=== PATIENT | male | born 1955 | race Caucasian/White ===

== ENCOUNTER 2021-06-18 11:09 | Inpatient (IN) | payer BC ==
[2021-06-18] MEDS ORDERED: Nitroglycerin 2% Ointment 1 INCH/1 GM Packet ONE (11:41)
[2021-06-18 11:48] LABS: #Lymphocytes 1.9 thou/uL (1.20-3.40); #Monocytes 0.6 thou/uL (0.11-0.59); #Neutrophils 6.2 thou/uL (1.40-6.50); %Basophils 0.3 % (0.0-1.0); %Eosinophils 0.5 % (0.0-10.0); %Lymphocytes 21.7 % (21.0-51.0); %Monocytes 6.4 % (0.0-10.0); %Neutrophils 71.1 % (42.0-75.0); Hemoglobin 15.1 g/dL (14.0-18.0); Mean Corpuscular HGB CONC 32.3 g/dL (32.0-36.0); Mean Corpuscular Hemoglobin 29.3 pg (27.0-31.0); Mean Corpuscular Volume 90.7 fL (78.0-98.0); Platelet Count 233 thou/uL (130-400); RBC Distribution Width 11.8 % (11.5-14.5); Red Blood Cell (RBC) Count 5.17 mill/uL (4.70-6.10); White Blood Cell (WBC) Count 8.8 thou/uL (4.8-10.8)
[2021-06-18 12:09] LABS: ALT (SGPT) 26 U/L (8-55); AST (SGOT) 17 U/L (5-34); Albumin 4.2 g/dL (3.4-4.8); Alkaline Phosphatase 86 U/L (40-110); Anion Gap 13 mmol/L (10-20); BUN (Urea Nitrogen) 9 mg/dL (8.4-25.7); Bilirubin, Total 0.4 mg/dL (0.2-1.2); Calc. Creatinine Clearance 0 mL/min (70-130); Calcium 9.4 mg/dL (7.8-10.44); Carbon Dioxide 21 mmol/L (23-31); Chloride 106 mmol/L (98-107); Globulin 2.9 g/dL (2.4-3.5); Glucose 105 mg/dL (80-115); Lipase 14 U/L (8-78); Magnesium 1.9 mg/dL (1.6-2.6); Potassium 4.1 mmol/L (3.5-5.1); Protein, Total 7.1 g/dL (5.8-8.1); Sodium 136 mmol/L (136-145)
[2021-06-18 12:30] LABS: CKMB 1.4 ng/mL (0-6.6)
[2021-06-18] MEDS ORDERED: Enoxaparin Sodium 80 MG/0.8 ML SYRINGE ONE (13:11)
[2021-06-18] MEDS ORDERED: Aspirin Chewable 81 MG TAB ONE (13:11)
[2021-06-18] MEDS ORDERED: Acetaminophen 650 MG Suppository PR PRN (13:43)
[2021-06-18] MEDS ORDERED: Dextrose 50% Abboject 50 ML SYRINGE SLOW IVP PRN (13:46)
[2021-06-18] MEDS ORDERED: Dextrose 5% in Water 1,000 ML IV PRN (13:46)
[2021-06-18] MEDS ORDERED: Insulin Regular 300 UNITS/3 ML VIAL SC PRN (13:46)
[2021-06-18] MEDS ORDERED: Lidocaine 2% Viscous Solution 10 ML, Aluminum & Magnesium Hydroxide 30 ML SSW SCH (14:15)
[2021-06-18 15:36] VITALS: BMI 29.9
[2021-06-18 16:30] LABS: Troponin I 0.052 ng/mL (< 0.028)
[2021-06-18 18:29] LABS: Troponin I 0.052 ng/mL (< 0.028)
[2021-06-18 19:40] LABS: SARS-CoV-2 PCR by NAA Not Detected (NotDetected)
[2021-06-18] MEDS: Atorvastatin Calcium 40 MG TAB PO SCH (20:11)
[2021-06-18] MEDS: Acetaminophen 325 MG TAB PO PRN (20:14)
[2021-06-18] MEDS: Nitroglycerin 2% Ointment 1 INCH/1 GM Packet TOP SCH (20:25)
[2021-06-19] MEDS: Nitroglycerin 2% Ointment 1 INCH/1 GM Packet TOP SCH ×3 (03:04→21:00)
[2021-06-19 05:12] LABS: #Basophils 0.1 thou/uL (0.0-0.2); #Eosinphils 0.1 thou/uL (0.0-0.7); #Monocytes 0.7 thou/uL (0.11-0.59); #Neutrophils 6.6 thou/uL (1.40-6.50); %Basophils 0.7 % (0.0-1.0); %Lymphocytes 20.9 % (21.0-51.0); %Monocytes 7.4 % (0.0-10.0); Hemoglobin 14.2 g/dL (14.0-18.0); Mean Corpuscular Hemoglobin 29.8 pg (27.0-31.0); Mean Corpuscular Volume 90.3 fL (78.0-98.0); Mean Platelet Volume 7.9 fL (7.4-10.4); Platelet Count 191 thou/uL (130-400); RBC Distribution Width 11.6 % (11.5-14.5); Red Blood Cell (RBC) Count 4.75 mill/uL (4.70-6.10); White Blood Cell (WBC) Count 9.4 thou/uL (4.8-10.8)
[2021-06-19 05:30] LABS: Anion Gap 12 mmol/L (10-20); BUN (Urea Nitrogen) 11 mg/dL (8.4-25.7); Calc. Creatinine Clearance 96 mL/min (70-130); Calcium 9.1 mg/dL (7.8-10.44); Carbon Dioxide 25 mmol/L (23-31); Cardiac Risk 3.6 (Less than 4.5); Chloride 105 mmol/L (98-107); Cholesterol 121 mg/dl (< 200 Desired); Glucose 102 mg/dL (80-115); HDL Cholesterol 34 mg/dL (>60 Neg Risk); LDL Cholesterol, Calculated 64 mg/dL; Potassium 3.9 mmol/L (3.5-5.1); Sodium 138 mmol/L (136-145); Triglycerides 115 mg/dL (Less than 150)
[2021-06-19] MEDS: Amlodipine 5 MG TAB PO SCH (08:27)
[2021-06-19] MEDS ORDERED: Amlodipine 10 MG TAB PO SCH (09:00)
[2021-06-19] MEDS: Aspirin Chewable 81 MG TAB PO SCH (13:21)
[2021-06-19] MEDS ORDERED: Regadenoson 0.4 MG/5 ML SYRINGE ONE (14:57)
[2021-06-19] MEDS: Atorvastatin Calcium 40 MG TAB PO SCH (20:57)
[2021-06-20] MEDS: Nitroglycerin 2% Ointment 1 INCH/1 GM Packet TOP SCH ×3 (04:56→20:11)
[2021-06-20] MEDS: Acetaminophen 325 MG TAB PO PRN ×2 (04:57→20:10)
[2021-06-20 05:11] LABS: #Eosinphils 0.1 thou/uL (0.0-0.7); #Lymphocytes 2.1 thou/uL (1.20-3.40); #Monocytes 0.8 thou/uL (0.11-0.59); #Neutrophils 7.8 thou/uL (1.40-6.50); %Basophils 0.4 % (0.0-1.0); %Eosinophils 0.8 % (0.0-10.0); %Lymphocytes 19.1 % (21.0-51.0); %Monocytes 7.4 % (0.0-10.0); %Neutrophils 72.4 % (42.0-75.0); Hemoglobin 13.3 g/dL (14.0-18.0); Mean Corpuscular HGB CONC 31.3 g/dL (32.0-36.0); Mean Corpuscular Hemoglobin 28.6 pg (27.0-31.0); Mean Corpuscular Volume 91.2 fL (78.0-98.0); Mean Platelet Volume 7.6 fL (7.4-10.4); Platelet Count 224 thou/uL (130-400); RBC Distribution Width 11.6 % (11.5-14.5); Red Blood Cell (RBC) Count 4.66 mill/uL (4.70-6.10); White Blood Cell (WBC) Count 10.8 thou/uL (4.8-10.8)
[2021-06-20 05:36] LABS: Anion Gap 12 mmol/L (10-20); BUN (Urea Nitrogen) 12 mg/dL (8.4-25.7); Calc. Creatinine Clearance 99 mL/min (70-130); Calcium 8.8 mg/dL (7.8-10.44); Carbon Dioxide 25 mmol/L (23-31); Chloride 105 mmol/L (98-107); Glucose 109 mg/dL (80-115); Potassium 3.9 mmol/L (3.5-5.1); Sodium 138 mmol/L (136-145)
[2021-06-20] MEDS: Amlodipine 5 MG TAB PO SCH (07:59)
[2021-06-20] MEDS: Aspirin Chewable 81 MG TAB PO SCH (07:59)
[2021-06-20] MEDS: Lisinopril 5 MG TAB PO SCH (07:59)
[2021-06-20] MEDS ORDERED: Communication Order-Pharmacy FS SCH (11:15)
[2021-06-20] MEDS: Atorvastatin Calcium 40 MG TAB PO SCH (20:11)
[2021-06-21] MEDS: Nitroglycerin 2% Ointment 1 INCH/1 GM Packet TOP SCH ×3 (05:05→20:26)
[2021-06-21 05:33] LABS: #Eosinphils 0.2 thou/uL (0.0-0.7); #Lymphocytes 2.4 thou/uL (1.20-3.40); #Monocytes 0.7 thou/uL (0.11-0.59); %Basophils 0.3 % (0.0-1.0); %Eosinophils 2.2 % (0.0-10.0); %Lymphocytes 32.8 % (21.0-51.0); %Monocytes 9.6 % (0.0-10.0); %Neutrophils 55.1 % (42.0-75.0); Hemoglobin 12.9 g/dL (14.0-18.0); Mean Corpuscular HGB CONC 32.3 g/dL (32.0-36.0); Mean Corpuscular Hemoglobin 29.4 pg (27.0-31.0); Mean Corpuscular Volume 91.1 fL (78.0-98.0); Mean Platelet Volume 8.3 fL (7.4-10.4); Platelet Count 198 thou/uL (130-400); RBC Distribution Width 11.6 % (11.5-14.5); Red Blood Cell (RBC) Count 4.39 mill/uL (4.70-6.10); White Blood Cell (WBC) Count 7.3 thou/uL (4.8-10.8)
[2021-06-21 05:43] LABS: Anion Gap 10 mmol/L (10-20); BUN (Urea Nitrogen) 12 mg/dL (8.4-25.7); Calc. Creatinine Clearance 90 mL/min (70-130); Calcium 8.6 mg/dL (7.8-10.44); Carbon Dioxide 26 mmol/L (23-31); Chloride 107 mmol/L (98-107); Glucose 107 mg/dL (80-115); Potassium 3.8 mmol/L (3.5-5.1); Sodium 139 mmol/L (136-145)
[2021-06-21] MEDS: Lisinopril 5 MG TAB PO SCH (05:59)
[2021-06-21] MEDS: Aspirin Chewable 81 MG TAB PO SCH (05:59)
[2021-06-21] MEDS: Amlodipine 5 MG TAB PO SCH (05:59)
[2021-06-21] MEDS ORDERED: Nitroglycerin 100MG/250ML BOT 250 ML ONE (06:26)
[2021-06-21] MEDS ORDERED: Heparin 10,000 UNITS/ 10 ML VIAL ONE (06:26)
[2021-06-21] MEDS ORDERED: Lidocaine 1% (PF) 30 ML VIAL ONE (06:26)
[2021-06-21] MEDS ORDERED: Verapamil 5 MG/2 ML VIAL ONE (07:11)
[2021-06-21] MEDS ORDERED: Midazolam HCl 2 mg/2 ml Vial ONE (07:12)
[2021-06-21] MEDS ORDERED: Adenosine 6 MG/2 ML VIAL ONE (07:42)
[2021-06-21] MEDS ORDERED: Nitroglycerin 0.4 MG TAB (25 Tab Bottle) SL PRN ×2 (08:19→08:23)
[2021-06-21] MEDS ORDERED: Acetaminophen/Codeine 30-300mg Tablet PO PRN ×3 (08:19→08:23)
[2021-06-21] MEDS ORDERED: Sodium Chloride 0.9% 200 ML IV PRN ×2 (08:19→08:23)
[2021-06-21] MEDS ORDERED: Iopamidol 370 76% 100 ML VIAL ONE (14:54)
[2021-06-21] MEDS ORDERED: Diazepam 5 MG TAB PO PRN (18:13)
[2021-06-21] MEDS ORDERED: Communication Order-Pharmacy FS SCH (18:13)
[2021-06-21] MEDS: Atorvastatin Calcium 40 MG TAB PO SCH (20:26)
[2021-06-21] MEDS ORDERED: Senokot 8.6 MG TAB PO SCH (21:00)
[2021-06-22 05:26] LABS: #Eosinphils 0.1 thou/uL (0.0-0.7); #Lymphocytes 1.7 thou/uL (1.20-3.40); #Monocytes 0.6 thou/uL (0.11-0.59); #Neutrophils 5.6 thou/uL (1.40-6.50); %Basophils 0.3 % (0.0-1.0); %Eosinophils 1.2 % (0.0-10.0); %Monocytes 7.7 % (0.0-10.0); %Neutrophils 69.7 % (42.0-75.0); Hemoglobin 13.5 g/dL (14.0-18.0); Mean Corpuscular HGB CONC 32.8 g/dL (32.0-36.0); Mean Corpuscular Hemoglobin 29.7 pg (27.0-31.0); Mean Corpuscular Volume 90.4 fL (78.0-98.0); Mean Platelet Volume 8.1 fL (7.4-10.4); Platelet Count 209 thou/uL (130-400); RBC Distribution Width 11.4 % (11.5-14.5); Red Blood Cell (RBC) Count 4.53 mill/uL (4.70-6.10)
[2021-06-22] MEDS: Nitroglycerin 2% Ointment 1 INCH/1 GM Packet TOP SCH (05:30)
[2021-06-22 05:44] LABS: Anion Gap 13 mmol/L (10-20); BUN (Urea Nitrogen) 10 mg/dL (8.4-25.7); Calc. Creatinine Clearance 104 mL/min (70-130); Calcium 8.8 mg/dL (7.8-10.44); Carbon Dioxide 23 mmol/L (23-31); Chloride 107 mmol/L (98-107); Glucose 106 mg/dL (80-115); Potassium 3.7 mmol/L (3.5-5.1); Sodium 139 mmol/L (136-145)
[2021-06-22] MEDS: Lisinopril 5 MG TAB PO SCH (05:54)
[2021-06-22] MEDS ORDERED: Albumin 5% 500 ML ONE (10:41)
[2021-06-22] MEDS ORDERED: EPINEPHrine 1 MG/ML AMP ONE (10:41)
[2021-06-22] MEDS ORDERED: Bupivacaine 0.25% 10 ML VIAL ONE (10:41)
[2021-06-22] MEDS ORDERED: ceFAZolin 2 GM/Dextrose 50 ML 2 GM in Premix Bag 1 BAG IVPB SCH (11:00)
[2021-06-22] MEDS ORDERED: Dexamethasone 4 mg/ml Vial ONE (11:02)
[2021-06-22] MEDS ORDERED: Heparin 10,000 UNITS/1 ML VIAL 30,000 UNITS in Sodium Chloride 0.9% 1,000 ML FS SCH (11:15)
[2021-06-22] MEDS ORDERED: CEFAZOLIN 1 GM VIAL ONE (11:26)
[2021-06-22] MEDS ORDERED: ceFAZolin 2 GM/DEX 5% 100 ML BAG ONE (11:26)
[2021-06-22] MEDS ORDERED: Calcium Chloride 1 GM/10 ML Abboject SYRINGE ONE (11:37)
[2021-06-22] MEDS ORDERED: ePHEDrine 50 MG/ML VIAL ONE (11:37)
[2021-06-22] MEDS ORDERED: Sodium Bicarb 50 MEQ/50 ML Abboject 8.4% SYRINGE ONE (11:37)
[2021-06-22] MEDS ORDERED: Heparin 30,000 units/30 ml VIAL ONE (11:37)
[2021-06-22] MEDS ORDERED: Rocuronium Bromide 10 MG/ML (10ML VIAL) ONE (11:37)
[2021-06-22] MEDS ORDERED: Protamine Sulfate 250 MG/25 ML VIAL ONE (11:37)
[2021-06-22] MEDS ORDERED: PROPOFOL 200 MG/20 ML VIAL ONE (11:37)
[2021-06-22] MEDS ORDERED: Cardioplegic Soln 1,000 ML BAG ONE (11:37)
[2021-06-22] MEDS ORDERED: Heparin 5,000 UNITS/ML VIAL ONE (11:37)
[2021-06-22] MEDS ORDERED: Vecuronium 10 MG VIAL ONE (11:37)
[2021-06-22] MEDS ORDERED: Potassium Chloride 60 MEQ/30 ML VIAL ONE (11:37)
[2021-06-22] MEDS ORDERED: Thrombin 5000 UNITS/5 ML VIAL ONE (11:37)
[2021-06-22] MEDS ORDERED: Magnesium Sulfate 1 GM/2 ML VIAL ONE (11:37)
[2021-06-22] MEDS ORDERED: Mannitol 12.5 GM/50 ML ONE (11:37)
[2021-06-22] MEDS ORDERED: Lidocaine 2% PF 100 mg/5 ml Syringe ONE (11:37)
[2021-06-22] MEDS ORDERED: Aminocaproic Acid 5 GM/20 ML VIAL ONE (11:37)
[2021-06-22] MEDS ORDERED: Papaverine 60 MG/2 ML VIAL ONE (11:37)
[2021-06-22] MEDS ORDERED: Midazolam HCl 5 mg/5 ml Vial ONE (11:43)
[2021-06-22] MEDS ORDERED: Fentanyl 100 MCG/2 ML VIAL ONE ×2 (11:43)
[2021-06-22] MEDS ORDERED: metroNIDAZOLE 500 MG/100 ML BAG ONE (11:44)
[2021-06-22] MEDS ORDERED: Acetaminophen 325 MG TAB PO PRN (14:46)
[2021-06-22] MEDS ORDERED: D5 1/2 NS w/20 mEq KCL 1,000 ML IV SCH (14:46)
[2021-06-22] MEDS ORDERED: Magnesium 2 GM/50 ML(in water) 2 GM in Premix Bag 1 BAG IVPB SCH (14:46)
[2021-06-22] MEDS ORDERED: Mag-Al 1200 mg/1200 mg/30 ML UDCUP PO PRN (14:46)
[2021-06-22] MEDS ORDERED: Nitroglycerin 50 MG/250 ML BOT 250 ML IVPB PRN (14:46)
[2021-06-22] MEDS ORDERED: hydrALAZINE 20 MG/ML VIAL SLOW IVP PRN (14:46)
[2021-06-22] MEDS ORDERED: Fentanyl 100 MCG/2 ML VIAL SLOW IVP PRN ×2 (14:46)
[2021-06-22] MEDS ORDERED: Promethazine HCl 25 MG/ML VIAL IM PRN (14:46)
[2021-06-22] MEDS ORDERED: Guaifenesin DM 100-10/5 ML UDCUP PO PRN (14:46)
[2021-06-22] MEDS ORDERED: Phenylephrine 40 MG in Sodium Chloride 0.9% 250 ML 246 ML IVPB PRN (14:46)
[2021-06-22] MEDS ORDERED: Bisacodyl 5 MG TAB PO PRN (14:46)
[2021-06-22] MEDS ORDERED: Hetastarch 6% 500 ML 500 ML IVPB PRN (14:46)
[2021-06-22] MEDS ORDERED: Morphine 4 MG/ML VIAL SLOW IVP PRN (14:46)
[2021-06-22] MEDS ORDERED: Bisacodyl 10 MG SUPP PR PRN (14:46)
[2021-06-22] MEDS ORDERED: Potassium Chloride 20 MEQ/100 ML PREMIX BAG IVPB PRN (14:46)
[2021-06-22 15:06] LABS: Actual Bicarbonate (HCO3a) 21.8 mEq/L (22-28); Base Excess (BEa) -3.2 mEq/L (-2.0 to +3.0); CO2 Tension 38.8 mmHg (35.0-45.0); Calcium, Ionized (arterial) 1.14 mmol/L (1.12-1.30); Carboxyhemoglobin (COHb) 0.1 gm% (0.0-3.0); Hemoglobin (Hb) 12.8 g/dL (14.0-18.0); O2 Tension (PaO2), arterial 217.7 mmHg (> 80.0); Potassium - ABG Lab 4.14 mmol/L (3.70-5.30); pH, Arterial 7.37 (7.35-7.45)
[2021-06-22 15:08] LABS: Puncture Site Arterial Line
[2021-06-22] MEDS ORDERED: Dextrose 5% in Water 1,000 ML IV PRN (15:15)
[2021-06-22] MEDS ORDERED: Dextrose 50% Abboject 50 ML SYRINGE SLOW IVP PRN (15:15)
[2021-06-22 15:27] LABS: #Basophils 0.1 thou/uL (0.0-0.2); #Eosinphils 0.1 thou/uL (0.0-0.7); #Lymphocytes 1.3 thou/uL (1.20-3.40); #Monocytes 0.5 thou/uL (0.11-0.59); #Neutrophils 11.8 thou/uL (1.40-6.50); %Basophils 0.5 % (0.0-1.0); %Eosinophils 0.5 % (0.0-10.0); %Lymphocytes 9.2 % (21.0-51.0); %Monocytes 3.7 % (0.0-10.0); %Neutrophils 86.1 % (42.0-75.0); Hemoglobin 12.3 g/dL (14.0-18.0); Mean Corpuscular HGB CONC 32.8 g/dL (32.0-36.0); Mean Corpuscular Volume 91.3 fL (78.0-98.0); Platelet Count 138 thou/uL (130-400); RBC Distribution Width 11.5 % (11.5-14.5); Red Blood Cell (RBC) Count 4.11 mill/uL (4.70-6.10); White Blood Cell (WBC) Count 13.7 thou/uL (4.8-10.8)
[2021-06-22 15:35] LABS: Anion Gap 14 mmol/L (10-20); BUN (Urea Nitrogen) 9 mg/dL (8.4-25.7); Calc. Creatinine Clearance 114 mL/min (70-130); Calcium 8.1 mg/dL (7.8-10.44); Carbon Dioxide 20 mmol/L (23-31); Chloride 110 mmol/L (98-107); Glucose 131 mg/dL (80-115); Potassium 4.2 mmol/L (3.5-5.1); Sodium 140 mmol/L (136-145)
[2021-06-22 15:40] LABS: INR-International Normal Ratio 1.2; PTT 30.8 sec (22.9-36.1); Prothrombin Time 15.5 sec (12.0-14.7)
[2021-06-22] MEDS: Insulin Regular 300 UNITS/3 ML VIAL SC PRN ×2 (15:47→21:09)
[2021-06-22] MEDS: Ketorolac Tromethamine 30 MG/ML VIAL IVP SCH (17:36)
[2021-06-22 20:22] LABS: Hemoglobin 12.9 g/dL (14.0-18.0)
[2021-06-22 20:43] LABS: Potassium 4.3 mmol/L (3.5-5.1)
[2021-06-22] MEDS: Atorvastatin Calcium 40 MG TAB PO SCH (20:55)
[2021-06-22] MEDS: Famotidine/PF 20 mg/2ml Vial SLOW IVP SCH (20:57)
[2021-06-22] MEDS: CEFAZOLIN 2 GM, IV Admixture Fee-Chemo 1 UNITS in Sodium Chloride 0.9% 100 ML IVPB SCH (21:08)
[2021-06-22] MEDS: traMADol HCl 50 MG TAB PO PRN (21:20)
[2021-06-22] MEDS: Ondansetron PF 4 MG/2 ML Vial IVP PRN (22:09)
[2021-06-23] MEDS: Ketorolac Tromethamine 30 MG/ML VIAL IVP SCH ×5 (00:24→23:07)
[2021-06-23] MEDS: Insulin Regular 300 UNITS/3 ML VIAL SC PRN ×3 (00:32→23:06)
[2021-06-23] MEDS: CEFAZOLIN 2 GM, IV Admixture Fee-Chemo 1 UNITS in Sodium Chloride 0.9% 100 ML IVPB SCH (03:57)
[2021-06-23 04:37] LABS: #Lymphocytes 0.6 thou/uL (1.20-3.40); #Monocytes 0.8 thou/uL (0.11-0.59); #Neutrophils 12.7 thou/uL (1.40-6.50); %Lymphocytes 4.5 % (21.0-51.0); %Monocytes 5.9 % (0.0-10.0); %Neutrophils 89.5 % (42.0-75.0); Hemoglobin 11.3 g/dL (14.0-18.0); Mean Corpuscular HGB CONC 31.7 g/dL (32.0-36.0); Mean Corpuscular Hemoglobin 28.9 pg (27.0-31.0); Mean Corpuscular Volume 90.9 fL (78.0-98.0); Mean Platelet Volume 8.2 fL (7.4-10.4); Platelet Count 186 thou/uL (130-400); RBC Distribution Width 11.5 % (11.5-14.5); Red Blood Cell (RBC) Count 3.91 mill/uL (4.70-6.10); White Blood Cell (WBC) Count 14.1 thou/uL (4.8-10.8)
[2021-06-23 04:56] LABS: Anion Gap 10 mmol/L (10-20); BUN (Urea Nitrogen) 10 mg/dL (8.4-25.7); Calc. Creatinine Clearance 121 mL/min (70-130); Calcium 7.9 mg/dL (7.8-10.44); Carbon Dioxide 22 mmol/L (23-31); Chloride 110 mmol/L (98-107); Glucose 153 mg/dL (80-115); Potassium 4.6 mmol/L (3.5-5.1); Sodium 137 mmol/L (136-145)
[2021-06-23] MEDS: Famotidine/PF 20 mg/2ml Vial SLOW IVP SCH (07:29)
[2021-06-23] MEDS: Aspirin 325 MG TAB PO SCH (07:32)
[2021-06-23] MEDS ORDERED: Magnesium 2 GM/50 ML(in water) 2 GM in Premix Bag 1 BAG IVPB SCH (09:00)
[2021-06-23] MEDS: traMADol HCl 50 MG TAB PO PRN ×4 (09:13→23:06)
[2021-06-23] MEDS ORDERED: Mineral Oil ENEMA PR PRN (09:58)
[2021-06-23] MEDS ORDERED: diphenhydrAMINE 25 MG CAP PO PRN (09:58)
[2021-06-23] MEDS ORDERED: Fentanyl 100 MCG/2 ML VIAL SLOW IVP PRN (09:58)
[2021-06-23] MEDS ORDERED: Guaifenesin DM 100-10/5 ML UDCUP PO PRN (09:58)
[2021-06-23] MEDS ORDERED: Mag-Al 1200 mg/1200 mg/30 ML UDCUP PO PRN (09:58)
[2021-06-23] MEDS ORDERED: Zolpidem Tartrate 5 MG TAB PO PRN (09:58)
[2021-06-23] MEDS ORDERED: Bisacodyl 10 MG SUPP PR PRN ×2 (09:58→16:30)
[2021-06-23] MEDS ORDERED: Dextrose 50% Abboject 50 ML SYRINGE SLOW IVP PRN (10:30)
[2021-06-23] MEDS ORDERED: Dextrose 5% in Water 1,000 ML IV PRN (10:30)
[2021-06-23] MEDS: Ondansetron PF 4 MG/2 ML Vial IVP PRN (11:44)
[2021-06-23] MEDS: Milk Of Magnesia 30 ML UDCUP PO PRN (11:44)
[2021-06-23] MEDS: Furosemide 20 MG TAB PO SCH (15:30)
[2021-06-23] MEDS: Potassium Chloride 10 MEQ TAB PO SCH (17:07)
[2021-06-23] MEDS: Fentanyl 100 MCG/2 ML VIAL SLOW IVP PRN (21:11)
[2021-06-23] MEDS: Atorvastatin Calcium 40 MG TAB PO SCH (21:12)
[2021-06-24] MEDS: Fentanyl 100 MCG/2 ML VIAL SLOW IVP PRN (05:28)
[2021-06-24] MEDS: Ketorolac Tromethamine 30 MG/ML VIAL IVP SCH ×4 (05:29→23:32)
[2021-06-24 09:59] LABS: Actual Bicarbonate (HCO3a) 18.7 mEq/L (22-28); Analyzer IN Cardio OR; Base Excess (BEa) -5.7 mEq/L (-2.0 to +3.0); CO2 Tension 33.1 mmHg (35.0-45.0); Calcium, Ionized (arterial) 1.09 mmol/L (1.12-1.30); Carboxyhemoglobin (COHb) 0.1 gm% (0.0-3.0); O2 Tension (PaO2), arterial 417.4 mmHg (> 80.0); Potassium - ABG Lab 3.66 mmol/L (3.70-5.30); pH, Arterial 7.37 (7.35-7.45)
[2021-06-24 10:00] LABS: Actual Bicarbonate (HCO3a) 21.1 mEq/L (22-28); Analyzer IN Cardio OR; Base Excess (BEa) -4.4 mEq/L (-2.0 to +3.0); CO2 Tension 40.7 mmHg (35.0-45.0); Calcium, Ionized (arterial) 1.11 mmol/L (1.12-1.30); Carboxyhemoglobin (COHb) 0.4 gm% (0.0-3.0); Hemoglobin (Hb) 12.4 g/dL (14.0-18.0); Potassium - ABG Lab 4.06 mmol/L (3.70-5.30); pH, Arterial 7.33 (7.35-7.45)
[2021-06-24 10:01] LABS: Actual Bicarbonate (HCO3a) 25.3 mEq/L (22-28); Analyzer IN Cardio OR; Base Excess (BEa) 0.2 mEq/L (-2.0 to +3.0); CO2 Tension 43.1 mmHg (35.0-45.0); Calcium, Ionized (arterial) 0.99 mmol/L (1.12-1.30); O2 Tension (PaO2), arterial 381.2 mmHg (> 80.0); Potassium - ABG Lab 4.42 mmol/L (3.70-5.30); pH, Arterial 7.39 (7.35-7.45)
[2021-06-24 10:01] LABS: Analyzer IN Cardio OR; Base Excess (BEa) -1.8 mEq/L (-2.0 to +3.0); CO2 Tension 33.5 mmHg (35.0-45.0); Carboxyhemoglobin (COHb) 0.3 gm% (0.0-3.0); Hemoglobin (Hb) 9.2 g/dL (14.0-18.0); O2 Tension (PaO2), arterial 443.8 mmHg (> 80.0); Potassium - ABG Lab 4.39 mmol/L (3.70-5.30); pH, Arterial 7.44 (7.35-7.45)
[2021-06-24 10:01] LABS: Actual Bicarbonate (HCO3a) 22.4 mEq/L (22-28); Analyzer IN Cardio OR; Base Excess (BEa) -3.3 mEq/L (-2.0 to +3.0); CO2 Tension 43.3 mmHg (35.0-45.0); Calcium, Ionized (arterial) 1.02 mmol/L (1.12-1.30); Carboxyhemoglobin (COHb) 0.3 gm% (0.0-3.0); Hemoglobin (Hb) 8.5 g/dL (14.0-18.0); O2 Tension (PaO2), arterial 293.3 mmHg (> 80.0); Potassium - ABG Lab 4.88 mmol/L (3.70-5.30); pH, Arterial 7.33 (7.35-7.45)
[2021-06-24 10:02] LABS: Actual Bicarbonate (HCO3a) 21.1 mEq/L (22-28); Analyzer IN Cardio OR; Base Excess (BEa) -2.9 mEq/L (-2.0 to +3.0); Calcium, Ionized (arterial) 1.15 mmol/L (1.12-1.30); Carboxyhemoglobin (COHb) 0.3 gm% (0.0-3.0); Hemoglobin (Hb) 11.7 g/dL (14.0-18.0); pH, Arterial 7.41 (7.35-7.45)
[2021-06-24 10:02] LABS: Actual Bicarbonate (HCO3a) 19.9 mEq/L (22-28); Analyzer IN Cardio OR; Base Excess (BEa) -3.9 mEq/L (-2.0 to +3.0); Calcium, Ionized (arterial) 1.15 mmol/L (1.12-1.30); Carboxyhemoglobin (COHb) 0.1 gm% (0.0-3.0); Hemoglobin (Hb) 11.7 g/dL (14.0-18.0); pH, Arterial 7.41 (7.35-7.45)
[2021-06-24] MEDS: Potassium Chloride 10 MEQ TAB PO SCH ×2 (11:40→18:07)
[2021-06-24] MEDS: Aspirin 325 MG TAB PO SCH (11:40)
[2021-06-24] MEDS: Metoprolol Tartrate 25 MG TAB PO SCH ×2 (11:40→20:17)
[2021-06-24] MEDS: Furosemide 20 MG TAB PO SCH ×2 (11:40→16:32)
[2021-06-24 13:49] LABS: Puncture Site Arterial Line
[2021-06-24 13:50] LABS: Puncture Site Arterial Line
[2021-06-24 13:50] LABS: Puncture Site Arterial Line
[2021-06-24 13:50] LABS: Puncture Site Arterial Line
[2021-06-24 13:51] LABS: Puncture Site Arterial Line
[2021-06-24 13:51] LABS: Puncture Site Arterial Line
[2021-06-24 13:52] LABS: Puncture Site Arterial Line
[2021-06-24] MEDS: Bisacodyl 5 MG TAB PO PRN (18:12)
[2021-06-24] MEDS: Atorvastatin Calcium 40 MG TAB PO SCH (20:16)
[2021-06-24] MEDS: Insulin Regular 300 UNITS/3 ML VIAL SC PRN (23:32)
[2021-06-25] MEDS: Ketorolac Tromethamine 30 MG/ML VIAL IVP SCH (05:56)
[2021-06-25] MEDS: traMADol HCl 50 MG TAB PO PRN (06:19)
[2021-06-25] MEDS: Aspirin 325 MG TAB PO SCH (09:05)
[2021-06-25] MEDS: Furosemide 20 MG TAB PO SCH (09:05)
[2021-06-25] MEDS: Metoprolol Tartrate 25 MG TAB PO SCH (09:05)
[2021-06-25] MEDS: Milk Of Magnesia 30 ML UDCUP PO PRN (09:05)
[2021-06-25] MEDS: Bisacodyl 5 MG TAB PO PRN (09:05)
[2021-06-25] MEDS: Potassium Chloride 10 MEQ TAB PO SCH (09:06)
[2021-06-25 12:16] LABS: SARS-CoV-2 PCR by NAA Not Detected (NotDetected)
[2021-06-25 13:32] VITALS: BP 135/76; TEMP 97.9
== END 2021-06-25 13:07 | disposition home or self-care (01) | DRG 234 ==
LOC: ERS 11:09 → 2SW 15:19 → OBSVTOIN 06-21 10:06 → CCU 06-22 10:06 → 2NO 06-23 12:54
PROVIDERS: ADMIT Family Medicine; ATTEND Hospitalist
PROC: 4A023N7 Measurement of Cardiac Sampling and Pressure, Left Heart, Percutaneous Approach (ICD-10-PCS; 2021-06-21)
PROC: B2151ZZ Fluoroscopy of Left Heart using Low Osmolar Contrast (ICD-10-PCS; 2021-06-21)
PROC: B2111ZZ Fluoroscopy of Multiple Coronary Arteries using Low Osmolar Contrast (ICD-10-PCS; 2021-06-21)
PROC: 02100Z9 Bypass Coronary Artery, One Artery from Left Internal Mammary, Open Approach (ICD-10-PCS; principal; 2021-06-22)
PROC: 021109W Bypass Coronary Artery, Two Arteries from Aorta with Autologous Venous Tissue, Open Approach (ICD-10-PCS; 2021-06-22)
PROC: 06BQ4ZZ Excision of Left Saphenous Vein, Percutaneous Endoscopic Approach (ICD-10-PCS; 2021-06-22)
PROC: 5A1221Z Performance of Cardiac Output, Continuous (ICD-10-PCS; 2021-06-22)
DX: I21.4 Non-ST elevation (NSTEMI) myocardial infarction (principal); Z20.822 Contact with and (suspected) exposure to COVID-19; I25.110 Atherosclerotic heart disease of native coronary artery with unstable angina pectoris; Z23 Encounter for immunization; I10 Essential (primary) hypertension; E78.5 Hyperlipidemia, unspecified; K21.9 Gastro-esophageal reflux disease without esophagitis; E11.51 Type 2 diabetes mellitus with diabetic peripheral angiopathy without gangrene; F17.210 Nicotine dependence, cigarettes, uncomplicated; Z88.5 Allergy status to narcotic agent; Z79.84 Long term (current) use of oral hypoglycemic drugs; Z79.899 Other long term (current) drug therapy; Z98.890 Other specified postprocedural states
CPT/HCPCS: 36415; 36416; 36430; 71045; 78452; 80048; 80053; 80061; 82553; 82805; 83690; 83735; 83880; 84484; 85025; 85379; 85610; 85730; 86850; 86900; 86901; 90471; 90732; 93005; 93010; 93017; 93306; 93458; 93798; 94002; 94150; 94760; 96372; 99152; 99153; A9500; C1751; C1769; G0009; G0378; J0153; J0171; J0690; J1100; J1642; J1644; J1650; J1815; J1885; J2001; J2150; J2250; J2405; J2440; J2704; J2720; J2785; J3010; J3370; J3475; J3480; J3490; P9045; Q9967; S0017; S0020; S0028; U0003; U0005

== ENCOUNTER 2023-04-13 09:34 | Emergency (ER) | payer BC, MEDICARE ==
[2023-04-13 10:51] LABS: #Monocytes 0.6 thou/uL (0.11-0.59); #Neutrophils 9.2 thou/uL (1.40-6.50); %Basophils 0.4 % (0.0-1.0); %Eosinophils 0.2 % (0.0-10.0); %Lymphocytes 9.8 % (21.0-51.0); %Monocytes 5.1 % (0.0-10.0); Hematocrit 45.2 % (42.0-52.0); Hemoglobin 14.6 g/dL (14.0-18.0); Mean Corpuscular HGB CONC 32.3 g/dL (32.0-36.0); Mean Corpuscular Hemoglobin 28.1 pg (27.0-31.0); Mean Corpuscular Volume 87.1 fl (78.0-98.0); Mean Platelet Volume 10.3 fL (7.4-10.4); Platelet Count 216 10x3/uL (130-400); RBC Distribution Width 12.7 % (11.5-14.5); Red Blood Cell (RBC) Count 5.19 mill/uL (4.70-6.10); White Blood Cell (WBC) Count 10.9 10x3/uL (4.8-10.8)
[2023-04-13 11:21] LABS: Troponin I Less than 0.010 ng/mL (< 0.028)
[2023-04-13] MEDS ORDERED: Meclizine HCl 25 MG TAB ONE (11:28)
[2023-04-13 11:46] LABS: ALT (SGPT) 25 U/L (8-55); AST (SGOT) 25 U/L (5-34); Albumin 4.3 g/dL (3.4-4.8); Alkaline Phosphatase 88 U/L (40-110); Anion Gap 17 mmol/L (10-20); BUN (Urea Nitrogen) 13 mg/dL (8.4-25.7); Bilirubin, Total 0.4 mg/dL (0.2-1.2); Calc. Creatinine Clearance 0 mL/min (70-130); Calcium 9.3 mg/dL (7.8-10.44); Carbon Dioxide 19 mmol/L (23-31); Chloride 106 mmol/L (98-107); Estimated GFR 96; Globulin 3.3 g/dL (2.4-3.5); Glucose 110 mg/dL (80-115); Magnesium 1.8 mg/dL (1.6-2.6); Potassium 4.9 mmol/L (3.5-5.1); Protein, Total 7.6 g/dL (5.8-8.1); Sodium 137 mmol/L (136-145)
[2023-04-13] MEDS ORDERED: Iopamidol-370 76% 500 ML MDV (1 ML CHARGE) ONE (13:46)
== END 2023-04-13 14:00 | disposition home or self-care (01) ==
LOC: ERS 09:34
DX: R42 Dizziness and giddiness (principal); R29.700 NIHSS score 0; I10 Essential (primary) hypertension; E11.9 Type 2 diabetes mellitus without complications; I25.10 Atherosclerotic heart disease of native coronary artery without angina pectoris; Z87.891 Personal history of nicotine dependence; Z79.82 Long term (current) use of aspirin; Z79.84 Long term (current) use of oral hypoglycemic drugs; Z79.899 Other long term (current) drug therapy; Z95.1 Presence of aortocoronary bypass graft
CPT/HCPCS: 70496; 70498; 71045; 80053; 83735; 84484; 85025; 93005; 96360; Q9967

== ENCOUNTER 2024-09-20 07:24 | Observation (INO) | payer BC ==
[2024-09-20 07:49] LABS: #Basophils 0.03 10x3/uL (0.0-0.2); #Eosinophils Less than 0.03 10x3/uL (0.0-0.7); #Neutrophils 5.42 10x3/uL (1.40-6.50); %Basophils 0.4 % (0.0-1.0); %Eosinophils 0.3 % (0.0-10.0); %Monocytes 10.7 % (0.0-10.0); %Neutrophils 72.1 % (42.0-75.0); Hematocrit 42.7 % (42.0-52.0); Mean Corpuscular HGB CONC 32.8 g/dL (32.0-36.0); Mean Corpuscular Hemoglobin 26.7 pg (27.0-31.0); Mean Corpuscular Volume 81.3 fL (78.0-98.0); Mean Platelet Volume 9.3 fL (7.4-10.4); Platelet Count 293 10x3/uL (130-400); RBC Distribution Width 13.3 % (11.5-14.5); Red Blood Cell (RBC) Count 5.25 mill/uL (4.70-6.10); White Blood Cell (WBC) Count 7.51 10x3/uL (4.8-10.8)
[2024-09-20 08:02] LABS: ALT (SGPT) 111 U/L (Less than 45); AST (SGOT) 72 U/L (11-34); Albumin 3.5 g/dL (3.1-4.5); Alkaline Phosphatase 112 U/L (40-110); Anion Gap 11 mmol/L (10-20); BUN (Urea Nitrogen) 11 mg/dL (8.4-25.7); Bilirubin, Total 0.5 mg/dL (0.3-1.2); Calc. Creatinine Clearance 0 mL/min (70-130); Calcium 9.1 mg/dL (7.8-10.44); Carbon Dioxide 25 mmol/L (23-31); Chloride 104 mmol/L (98-107); Estimated GFR 93; Globulin 3.8 g/dL (2.4-3.5); Glucose 104 mg/dL (80-115); Potassium 3.7 mmol/L (3.5-5.1); Protein, Total 7.3 g/dL (5.8-8.1); Sodium 136 mmol/L (136-145)
[2024-09-20 08:08] LABS: Troponin I Less than 0.010 ng/mL (< 0.028)
[2024-09-20 08:58] LABS: CRP,High Sensitivity (Inhouse) 1.88 mg/dL (< or = 0.5)
[2024-09-20] MEDS ORDERED: Ipratropium/Albuterol 3 ML NEB ONE (09:00)
[2024-09-20] MEDS ORDERED: Ondansetron ODT 4 MG TAB PO PRN (11:26)
[2024-09-20] MEDS ORDERED: Acetaminophen 325 MG TAB PO PRN (11:26)
[2024-09-20] MEDS ORDERED: Calcium Carbonate 500 MG ChewTAB PO PRN (11:26)
[2024-09-20] MEDS ORDERED: Senokot S 8.6-50 MG TAB PO PRN (11:26)
[2024-09-20 12:16] LABS: MONO NEGATIVE CONTROL ZONE White (Negative) (White); MONO POSITIVE CONTROL Pink Line (Positive) (PINK/RED); Mononucleosis NEGATIVE (NEGATIVE)
[2024-09-20] MEDS ORDERED: Iopamidol-370 76% 500 ML MDV (1 ML CHARGE) ONE (12:36)
[2024-09-20] MEDS: Lactated Ringer's 1,000 ML IV SCH (12:42)
[2024-09-20 12:49] VITALS: BMI 27.9
[2024-09-20] MEDS ORDERED: Dextrose 50% Abboject 50 ML SYRINGE SLOW IVP PRN (12:55)
[2024-09-20] MEDS ORDERED: Glucagon 1 MG/ML KIT IM PRN (12:55)
[2024-09-20] MEDS ORDERED: Insulin Lispro 100 UNIT/ML 10 ML VIAL SC PRN ×2 (12:55)
[2024-09-20] MEDS ORDERED: Dextrose 5% in Water 1,000 ML IV PRN (12:55)
[2024-09-20 12:59] LABS: HIV (1/2) Antibody/Antigen NONREACTIVE (NonReactive); HIV 1/2 INDEX 0.13 S/CO (<1.00)
[2024-09-20 14:02] LABS: Influenza A by NAA Not Detected (NotDetected); Influenza B by NAA Not Detected (NotDetected); RSV by NAA Not Detected (NotDetected); SARS-CoV-2 NAA Rapid Test Not Detected (NotDetected)
[2024-09-20 14:25] LABS: Band 11 % (5-11); Burr Cells MODERATE= 6-15 cells HPF (0-1); Lymphocytes 14 % (21-51); Monocytes 6 % (0-10); Neutrophil 68 % (42-75); Platelet Adequacy Comment Platelets Normal; Polychromasia SLIGHT = 2-3 cells HPF (0-2); Reactive Lymphocytes 1 % (0-10)
[2024-09-20 16:11] LABS: Bacteria/HPF None Seen HPF (None Seen); Bilirubin Negative (Negative); Blood, Urine Negative (Negative); CAUTI Indications for Culture Fever or rigors; Clarity Clear (Clear); Glucose, Urine (Dipstick) Normal (Negative); Ketone, Urine Negative (Negative); Leukocyte Negative Leu/uL (Negative); Nitrite Negative (Negative); Protein, Urine (Dipstick) Negative (Neg-Trace); RBC/HPF 0-3 HPF (0-3); Squamous Epithelial None Seen HPF (0-3); Urobilinogen Normal mg/dL (Less than 2); WBC/HPF 0-3 HPF (0-3); pH, Urine 7.5 (5.0-9.0)
[2024-09-20 16:13] LABS: Specific Gravity, Urine 1.055 (1.002-1.036)
[2024-09-20 16:14] LABS: Urine Culture Reflex No No
[2024-09-20] MEDS: Melatonin 3 MG TAB PO PRN (21:15)
[2024-09-20] MEDS: Atorvastatin Calcium 20 MG TAB PO SCH (21:15)
[2024-09-21] MEDS: Benzonatate 100 MG CAP PO PRN (06:23)
[2024-09-21 06:32] LABS: ALT (SGPT) 102 U/L (Less than 45); AST (SGOT) 72 U/L (11-34); Albumin 2.9 g/dL (3.1-4.5); Alkaline Phosphatase 89 U/L (40-110); Anion Gap 9 mmol/L (10-20); BUN (Urea Nitrogen) 9 mg/dL (8.4-25.7); Bilirubin, Total 0.4 mg/dL (0.3-1.2); Calc. Creatinine Clearance 94 mL/min (70-130); Calcium 8.3 mg/dL (7.8-10.44); Carbon Dioxide 23 mmol/L (23-31); Chloride 106 mmol/L (98-107); Estimated GFR 96; Glucose 98 mg/dL (80-115); Potassium 3.9 mmol/L (3.5-5.1); Protein, Total 5.9 g/dL (5.8-8.1); Sodium 134 mmol/L (136-145)
[2024-09-21] MEDS: Pantoprazole 40 MG DR.TAB PO SCH (09:26)
[2024-09-21] MEDS: Amlodipine 5 MG TAB PO SCH (09:27)
[2024-09-21] MEDS: Tamsulosin HCl 0.4 MG CAP PO SCH (09:27)
[2024-09-21] MEDS: Aspirin 81 mg Enteric Coated Tablet PO SCH (09:27)
[2024-09-21] MEDS: Enoxaparin 40 MG (0.4 mL) SYRINGE SC SCH (09:28)
[2024-09-21 12:24] VITALS: BP 133/81; TEMP 98.1
[2024-09-24 16:14] LABS: Metanephrine,Plasma 36.2 pg/mL (0.0-88.0); Normetanephrine,Pl 85.2 pg/mL (0.0-285.2)
[2024-09-24 16:38] LABS: QuantiFERON-TB Gold Plus Negative (Negative)
[2024-09-24 21:38] LABS: Histoplasma Mycelial AB (CF) Negative (Neg:<1:2); Histoplasma Yeast AB (CF) Negative (Neg:<1:2)
[2024-09-25 12:01] LABS: ANA Symphony (Qualitative) Negative (Negative); ANA Symphony (Quantitative) 0.3 Ratio (< 0.7 Negative); EliA RAS New Method **** NEW METHOD ****; Rheumatoid Factor IgA Antibody 3.8 IU/mL (<14 Negative); Rheumatoid Factor IgM Antibody 2.1 IU/mL (<3.5 Negative); dsDNA IgG Antibody Less than 0.6 IU/mL (<10 Negative)
[2024-09-25 16:14] LABS: Histoplasma Antigen - Urine Negative (<0.2 ng/mL)
== END 2024-09-21 15:00 | disposition home or self-care (01) ==
LOC: ERS 07:24 → SURG A 11:01
PROVIDERS: ADMIT Internal Medicine; ATTEND Family Medicine
PROC: B24BZZZ Ultrasonography of Heart with Aorta (ICD-10-PCS; principal; 2024-09-21)
DX: R50.9 Fever, unspecified (principal); I10 Essential (primary) hypertension; I25.10 Atherosclerotic heart disease of native coronary artery without angina pectoris; E11.9 Type 2 diabetes mellitus without complications; E78.5 Hyperlipidemia, unspecified; N40.0 Benign prostatic hyperplasia without lower urinary tract symptoms; Z95.1 Presence of aortocoronary bypass graft; Z87.891 Personal history of nicotine dependence; Z88.5 Allergy status to narcotic agent; Z79.84 Long term (current) use of oral hypoglycemic drugs; Z79.82 Long term (current) use of aspirin; Z79.899 Other long term (current) drug therapy
CPT/HCPCS: 0241U; 36415; 36416; 71045; 71275; 74177; 74183; 80053; 81001; 82728; 83520; 83605; 83690; 83835; 84145; 84443; 84484; 85025; 85060; 86038; 86141; 86225; 86308; 86480; 86698; 87040; 87385; 87389; 93005; 93306; G0378; J7120; J7620; Q9967